=== PATIENT | female | born 1940 | race African-American/Black ===

== ENCOUNTER → 2017-11-08 | Outpatient (CLI) | payer OTHER ==
[~2017-11-08] VITALS: Ht 162.6 cm; Wt 71.2 kg
[2017-11-08 10:44] VITALS: BP 139/90
[2017-11-08 11:18] LABS: HEMATOCRIT 34.6 % (37.0-47.0); MCH 28.1 pg (26.0-34.0); MCHC 31.8 g/dL (28.0-37.0); MCV 88.4 fL (80.0-100.0); MPV 7.6 fl. (7.2-11.1); RBC 3.92 mil/uL (4.20-5.00); RDW-CV 19.3 % (10.5-14.5); WBC 3.6 thou/uL (4.0-11.0)
[2017-11-08 11:24] LABS: ANION GAP 9 mmol/L (7-16); BUN 13 mg/dL (7-18); CALCIUM 8.2 mg/dL (8.5-10.1); CHLORIDE 108 mmol/L (98-107); CO2 27 mmol/L (21-32); CREATININE 1.1 mg/dL (0.6-1.3); GLUCOSE 96 mg/dL (70-99); SODIUM 144 mmol/L (136-145)
[2017-11-08 11:25] LABS: APTT 25.9 Seconds (25.0-31.3); INR 1.3; PROTIME 12.7 Seconds (9.20-11.50)
[2017-11-08 11:28] LABS: ALBUMIN 3.1 g/dL (3.4-5.0); ALKALINE PHOSPHATASE 203 U/L (46-116); CHOLESTEROL 172 mg/dL (<200); HDL CHOLESTEROL 30 mg/dL (>40); LDL CHOLESTEROL 130 mg/dL (<100); SGOT 23 U/L (15-37); SGPT 10 U/L (30-65); TC:HDL 5.7 Ratio (Not establshd); TOTAL BILIRUBIN 2.4 mg/dL (<0.1-1.0); TOTAL PROTEIN 7.3 g/dL (6.4-8.2); TRIGLYCERIDE 64 mg/dL (<150); VLDL 13 mg/dL (<40)
[2017-11-08 11:31] LABS: POTASSIUM 2.8 mmol/L (3.5-5.1); SERUM ASSESSMENT Clear
--- NOTE | 2017-11-08 11:46 | EKG ---
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
[2017-11-08 14:55] VITALS: BP 151/83
--- NOTE | 2017-11-08 15:27 | NUR ---
Pt discharging to [facility] for open heart surgery. Accepted under the care of Dr Mancuso to room CCU 200. Nurse report number provided to Reina [phone]. EmTala form initiated to be completed by nurse
--- NOTE | 2017-11-08 18:00 | CARD ---
[address] [address] CARDIAC CATH REPORT Name: ANGELOCAROL J Room: [facility] MANUEL Iraheta#: [id number] Admission: 11/08/17 Attend Phys: Patrick Giron MD, F Discharge: Date of : 44 Report #: [id number] THIS REPORT FOR: //name// APPROVED REPORT Study performed: 11/08/2017 10:59:17 Patient Details Patient Status: Out-Patient Room #: The patient is a 77 year-old female Event Personnel Patrick Giron Compress Engineer, Reina Dial RN RN, Whitney Krishnan, Gui Trujillo Monitor Procedures Performed Art Access - R femoral artery* Art Access - R femoral artery* , Left Heart Catheterization Indication CardiomyopathyPositive stress test Risk Factors Arterial Hypertension, Hypercholesterolemia Previous Procedures/Diagnoses Previous Vascular Surgery Admission/Lab Medications/Medications given during procedure Midazolam (Versed) IV 1 mg, Lidocaine Subcut 6 ml, Lidocaine Subcut 12 ml, Lidocaine Subcut 10 ml, Lovenox IV 70 mg Procedure Narrative The patient was brought electively to the Cardiac Catheterization Laboratory and was prepped and draped in a sterile manner. The right femoral was infiltrated with 1% Lidocaine subcutaneous anesthesia. A 6fr Ultimum Sheath sheath was inserted into the right radial artery. Coronary angiography was performed using coronary diagnostic catheters. The right coronary system was accessed and visualized with a 3DRC 6frJR4 5frDiagnostic catheter. The left coronary system was accessed and visualized with a JL 3.5 5fr catheter. The left ventricle was accessed and visualized with a PC: Straight Pig 5fr catheter. Left ventricular/Aortic Valve gradient assessed via catheter pullback. [place] [address] CARDIAC CATH REPORT Name: CAROL STEPHENS Room: [facility]#: [id number] Admission: 11/08/17 Attend Phys: Patrick Giron MD, F Discharge: Date of : 44 Report #: [id number] projection. Closure device was deployed with a 6 Fr MynxGrip 6/7F. The patient tolerated the procedure well and there were no complications associated with the procedure. There was no hematoma. Patient was given lasix 40 mg IV and Lovenox 70 mg SQ Intraoperative Conscious Sedation Sedation start time: 1313 Case end Time: 1355 Versed 2 mg Fluoro Time: 3.5 minutes Dose: DAP 60350 cGycm2 534 mGy Contrast Type and Amount: Omnipaque 80 ml Coronary Angiography The patient's coronary anatomy is left dominant. Diagnostic Cath Left Main 90% ostial stenosis LAD 80% ostial stenosis Circumflex 50% mid stenosis OM1 occluded and fills by bridging collaterals OM2 70% mid stenosis L PDA 70% mid stenosis Right Coronary occluded proximally Left Ventriculography The left ventricular ejection fraction is estimated to be 15-20%. Left ventricular wall motion abnormalities are present. There is 1+ mitral insufficiency. apical akinesis Hemodynamics The aortic pressure is 143/84 mmHg with a mean of 105 mmHg. The left ventricular pressure is 140/16 mmHg with a mean of mmHg. The left ventricular end diastolic pressure is 29 mmHg. Pullback from the left ventricle to the aorta revealed no gradient across the aortic valve. Conclusion 1. severe LV systolic dysfunction 2. 90% left main stenosis 3. 80% ostial stenosis of the lad 4. 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 chronic occlusion of [place] [address] CARDIAC CATH REPORT Name: STEPHENSCAROL Room: [facility]#: [id number] Admission: 11/08/17 Attend Phys: Patrick Giron MD, F Discharge: Date of : 44 Report #: [id number] Recommendations CABG <ELECTRONICALLY SIGNED> By: Patrick Giron MD, MILTON 11/08/171758 [id number] 175Patrick Giron MD, FACLoan /INF
--- NOTE | 2017-11-09 13:18 | H ---
[place] [address] HISTORY AND PHYSICAL Name: ALE STEPHENSPatricia Henderson [facility] [id number] Admission: 11/08/17 Attend Phys: Patrick Giron MD, F Discharge: Date of : 44 Report #: [id number] THIS REPORT FOR: //name// CC: Tianna David DATE OF SERVICE: 11/08/2017 HISTORY OF PRESENT ILLNESS: The patient is a 77-year-old black female who was brought to the outpatient department to undergo a cardiac catheterization. The patient has a long history of hypertension and hyperlipidemia. She has been followed by my partner, Dr. David. She apparently had a nuclear stress test in 2016 that showed a small apical defect. However, she had no history of angina and it was decided to treat her medically. She has a long history of edema and has been on Lasix. Recently, she complained of increasing shortness of breath and edema. She underwent an echocardiogram on 11/04. This showed an ejection fraction of only 20% with left atrial enlargement, [id number] tricuspid regurgitation, right atrial enlargement. Since she was noted to have a new cardiomyopathy, Dr. David recommended cardiac catheterization. The patient denies any significant chest pain, palpitations, or syncope. She has had no orthopnea. PAST MEDICAL HISTORY: Significant for previous placement of an abdominal aortic aneurysm stent graft. She had a hysterectomy, tonsillectomy, hypertension and hyperlipidemia. She apparently had a stroke years ago and her activity is somewhat limited since that time. MEDICATIONS: Include Lipitor, Lasix, Synthroid, losartan, metoprolol, and potassium. ALLERGIES: She has previous intolerance to EGG YOLK. FAMILY HISTORY: Significant for heart disease in her father. SOCIAL HISTORY: She is . She and her live in [place], [place]. No history of smoking or alcohol abuse. REVIEW OF SYSTEMS: She has had no history of asthma, peptic ulcer disease, liver disease, kidney disease, cancer, psychiatric illness, chronic skin condition. PHYSICAL EXAMINATION: GENERAL: Revealed an elderly female. VITAL SIGNS: Blood pressure 110/60, [place] 60[place] [address] HISTORY AND PHYSICAL Name: CAROL STEPHENS Room: [facility]#: [id number] Admission: 11/08/17 Attend Phys: Patrick Giron MD, F Discharge: Date of : 44 Report #: [id number] HEENT: Mucous membranes moist. She was anicteric, conjunctivae pink. NECK: No carotid bruits. Neck supple. No jugular venous distention. CHEST: Clear to auscultation. HEART: Regular rate and a grade 2 systolic ejection murmur. ABDOMEN: Obese, soft, nontender. EXTREMITIES: She had edema up to the mid tibial area. Dorsalis pedis pulse cannot be palpated. SKIN: Cool and dry. IMPRESSION AND RECOMMENDATIONS: 1. Coronary artery disease. Previous abnormal nuclear stress test. However, no history of angina. 2. Cardiomyopathy. Reason unclear. The patient has been on ARB and beta-alma delia. Recommend cardiac catheterization. 3. Hypertension. The patient has been on an ARB and beta-alma delia. 4. Hyperlipidemia. The patient is on a statin drug. 5. Previous stroke. No recurrent symptoms. 6. Previous placement of an abdominal aortic aneurysm stent graft. <ELECTRONICALLY SIGNED> By: Patrick Giron MD, FACC 11/09/17 1318 1122 [id number] Giron MD, FACC /nt
== END | disposition home or self-care (01) ==
LOC: M.CL 09:26
PROVIDERS: Internal Medicine Cardiovascular Disease
DX: I25.10 Atherosclerotic heart disease of native coronary artery without angina pectoris (principal); I71.4 Abdominal aortic aneurysm, without rupture; I34.0 Nonrheumatic mitral (valve) insufficiency; Z86.73 Personal history of transient ischemic attack (TIA), and cerebral infarction without residual deficits; E78.5 Hyperlipidemia, unspecified; E05.90 Thyrotoxicosis, unspecified without thyrotoxic crisis or storm; Z90.710 Acquired absence of both cervix and uterus; Z98.890 Other specified postprocedural states; I11.0 Hypertensive heart disease with heart failure; I50.9 Heart failure, unspecified